=== PATIENT | male | born 1980 | race Caucasian/White ===

== ENCOUNTER 2020-04-17 23:22 | Emergency (ER) | payer BC, SELFPAY ==
[2020-04-17 23:22] VITALS: BP 132/92; PULSE 91; RESP 20; TEMP 37.1; O2SAT 98
--- NOTE | 2020-04-17 23:49 | ED.GENADULT ---
HPI - General Adult General Chief complaint: Skin/Abscess/Foreign Body Stated complaint: BUG BITE Source: patient Mode of arrival: ambulatory Limitations: no limitations History of Present Illness HPI narrative: Long is a 40M with a PMH of a staph infection that presented to the ED with 3 days of a worsengin rash. He had a small spot on his upper abdomen that started a few days ago and has had worsening circumferential erythema, induration and tenderness since. No fevers, chills, N/V or other rashes. Related Data Allergies Allergy/AdvReac Type Severity Reaction Status Date / Time No Known Allergies Allergy Mild Verified 06/27/10 07:57 dextromethorphan Allergy Unknown Verified 02/10/10 12:25 Review of Systems Constitutional: Constitutional: Reports no additional constitutional complaints Eyes: Eyes: Reports no additional eye complaints ENT: Reports system reviewed and no additional complaints, except as documented Cardiovascular: Cardiovascular: Reports no additional cardiovascular complaints Respiratory: Respiratory: Reports no additional respiratory complaints Gastrointestinal: Gastrointestinal: Reports no additional gastrointestinal complaints Genitourinary: Genitourinary: Reports no additional male genitourinary complaints Musculoskeletal: Musculoskeletal: Reports no additional musculoskeletal complaints Integumentary/Breasts: Skin/Breast: Reports as per HPI Neurologic: Reports system reviewed and no additional complaints, except as documented Psychiatric: Psychiatric: Reports no additional psychiatric complaints Endocrine: Endocrine: Reports no additional endocrine complaints Hematologic/Lymphatic: Hematologic/Lymphatic: Reports no additional hematologic/lymphatic complaints Allergic/Immunologic: Allergic/Immunologic: Reports no additional allergic/immunologic complaints [facility] Family History Family History Mother Family history of thyroid disease Social History Social History Smoking status: Never smoker Alcohol intake: current Exam Const: General: no acute distress and alert Orientation/consciousness: patient oriented x3 Limitations: No altered mental status HENMT: Head: normal to inspection Eyes: Conjunctivae: conjunctivae normal Pupils: Equal, round and reactive pupils present Neck: Neck: normal visual inspection Chest: Chest palpation & inspection: normal inspection of the chest Resp: Effort & Inspection: normal respiratory effort Cardio: Rate: regular rate GI: GI Palp: Yes Soft to palpation, No Tenderness to palpation present (GI) and No Guarding due to palpation present (GI) Skin: General skin exam: normal color Other: He had an area of dark beefy red induration 3-4cm in diameter with further e tailer colored erythema around that and underlying induration. Point of care ultrasonography exam showed cobblestoning but no induration. Neuro: General: patient oriented x3 and moves all extremities Extrem: General: normal to inspection Psych: Appearance: grossly normal Mental Status: mental status grossly normal Course Course Emergency Course: Long was given a dose of oral antibiotics in the ER and a script was sent for 7 days of clindamycin. Discharge Plan Discharge Clinical Impression: Cellulitis Patient Disposition: Home, Self-Care Condition: Stable Instructions: Antibiotic Form, Cellulitis (ED) Additional Instructions: Please return for any new, concerning, or worsening symptoms. Prescriptions: New clindamycin HCl 300 mg capsule 300 mg PO Q6H 7 Days Qty: 28 RF: 0 Follow-up/Referrals: UNKNOWN,DOCTOR [Primary Care Provider] -
[2020-04-17] MEDS: CLINDAMYCIN HCL 150 MG CAP 450 MG PO (23:56)
== END 2020-04-18 00:01 | disposition home or self-care (01) ==
PROVIDERS: Emergency Provider Family Medicine
DX: L03.311 Cellulitis of abdominal wall (principal)
CPT/HCPCS: 99283; A9270

== ENCOUNTER 2022-03-29 23:34 | Emergency (ER) | payer OTHER, SELFPAY ==
[2022-03-29 23:34] VITALS: BP 120/77; PULSE 85; RESP 16; TEMP 36.3; O2SAT 97
--- NOTE | 2022-03-29 23:40 | ED.GIBLEED ---
HPI - GI Bleed General Chief complaint: GI Bleed Stated complaint: rectal bleeding Source: patient and family ( ) Mode of arrival: ambulatory Limitations: no limitations History of Present Illness HPI Narrative: patient is a 41-year-old white male stated he had hemorrhoid surgery 1 week ago in [facility]. Since that time he has had rectal bleeding which has gotten worse tonight leading to have a near syncopal episode. he said he has clot of blood about 1 cup full tonight. . He feels lightheaded dizzy. patient stated he did not have any bowel movement after the surgery for 4 days. During that time he had mild discomfort and a little bit of rectal bleeding. AFTER HE TOOK A COLACE TWICE A DAY AND MIRALAX LIQUID ON THE 4TH DAY IN A BOWEL MOVEMENT WITH BLOOD AND SINCE THEN HE HAS HAD BLOODY STOOLS. TODAY AT 7 BLOODY STOOLS WITH CLOTS. HE SAYS HE HAS WORSE PAIN JUST BEFORE HE GETS ON THE TOILET IN ATTEMPTING TO HOLD BACK HIS BOWEL MOVEMENT. HE RATES THIS IS 4 TO 5/10 CHEST BEFORE HE HAS A BOWEL MOVEMENT IN ATTEMPT TO KEEP THE STOOL FROM LEAKING OUT. OTHERWISE HIS PAIN IS MILD. HE HAS USED 1 OXYCONTIN TODAY AND HAS BEEN TRYING TO AVOID THESE HE KNOWS A CONSTIPATED. Related Data Home Medications Medication Instructions Recorded Confirmed oxycodone 5 mg tablet 5 mg PO Q8H PRN Pain 03/30/22 03/30/22 Allergies Allergy/AdvReac Type Severity Reaction Status Date / Time No Known Allergies Allergy Mild Unverified 03/30/22 00:33 dextromethorphan Allergy Unknown Unknown Verified 03/30/22 00:33 Review of Systems Constitutional: Constitutional: Reports no additional constitutional complaints Eyes: Eyes: Reports no additional eye complaints ENT: Reports system reviewed and no additional complaints, except as documented, Reports dizziness and Denies epistaxis Cardiovascular: Cardiovascular: Reports no additional cardiovascular complaints Respiratory: Respiratory: Reports no additional respiratory complaints Gastrointestinal: Gastrointestinal: Reports no additional gastrointestinal complaints Genitourinary: Genitourinary: Reports no additional male genitourinary complaints Musculoskeletal: Musculoskeletal: Reports no additional musculoskeletal complaints Integumentary/Breasts: Skin/Breast: Reports system reviewed and no additional complaints, except as docu Neurologic: Reports system reviewed and no additional complaints, except as documented and Reports dizziness Psychiatric: Psychiatric: Reports no additional psychiatric complaints Endocrine: Endocrine: Reports no additional endocrine complaints Hematologic/Lymphatic: Hematologic/Lymphatic: Reports no additional hematologic/lymphatic complaints, Denies easy bleeding and Denies easy bruising PMFSH Surgical History Surgical History H/O hemorrhoidectomy Family History Family History Mother Family history of thyroid disease Social History Social History Smoking status: Never smoker Alcohol intake: current Exam Const: Limitations: no limitations Other: PATIENT IS A WHITE MALE APPEARS PALE MILD DISTRESS. EYES CONJUNCTIVA PALE, SCLERA NONICTERIC OROPHARYNX IS CLEAR WITH MOIST MUCOUS MEMBRANES LIPS ARE PALE DRY NECK IS SUPPLE LUNGS ARE CLEAR HEART IS REGULAR RATE AND RHYTHM WITHOUT MURMURS GALLOPS OR RUBS. VITAL SIGNS ARE NORMAL IN THE SUPINE POSITION. ABDOMEN SOFT AND NONTENDER . RECTUM RECTAL FISSURE IS PRESENT WITH EXTERNAL HEMORRHOIDS. INTERNAL EXAM WAS NOT DONE. EXTREMITY IS NO CYANOSIS CLUBBING OR EDEMA. 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 DISCUSS WITH DR. BRADEN SANZ COLORECTAL SURGEON WHO DID HIS SURGERY; STATE HE DID A OPEN HEMORRHOIDECTOMY AND A RECTAL FISSURE THAT I AM SEEING IS MOST LIKELY HIS OPE
--- NOTE | 2022-03-29 23:45 | PC.NURSE ---
RN takes pt's orthostatic blood pressures upon arrival per ERP request. Pt's supine bp is 120/77. Sitting is 113/71. Pt was unable to tolerate standing the entire time bp is going due to dizziness and felt like he was going to pass out so RN lays pt back down during reading. The reading is 101/70
[2022-03-29 23:56] LABS: Hematocrit 29.2 % (40.0-54.0); Hemoglobin 10.4 g/dL (14.0-18.0); Mean Corpuscular HGB Conc 35.6 g/dL (32.0-36.0); Mean Corpuscular Hemoglobin 32.5 pg (27.0-31.0); Mean Corpuscular Volume 91.3 fL (78.0-102.0); Mean Platelet Volume 8.8 fl (8.7-11.0); Platelet Count Result 253 K/mm3 (150-420); Red Cell Distribution Width 11.9 % (11.6-14.4); White Blood Count 7.6 K/mm3 (4.8-10.8)
[2022-03-30] VITALS (11 sets, daily range): BP systolic 101–119; BP diastolic 65–79; PULSE 69–103; RESP 16–18; TEMP 36.4; O2SAT 98–100
[2022-03-30] MEDS: SODIUM CHLORIDE 0.9% IV 1,000 ML 999 ML IV CONT ×2 (00:04→02:04)
[2022-03-30 00:12] LABS: Alanine Aminotransferase 20 U/L (16-63); Albumin Level 2.9 g/dL (3.4-5.0); Alkaline Phosphatase 65 U/L (46-116); Anion Gap 6 mmol/L (8-16); Aspartate Amino Transferase 15 U/L (15-37); Bilirubin,Total 0.3 mg/dL (0.00-1.00); Blood Urea Nitrogen 14 mg/dL (7-18); Calcium 8.1 mg/dL (8.5-10.1); Carbon Dioxide 29 mmol/L (21-32); Chloride 105 mmol/L (98-108); Estimated Glomerular Filt Rate > 60; Glucose 105 mg/dL (70-99); Osmolality Calculated 290 mOsm/kg (285-295); Potassium 3.6 mmol/L (3.5-5.1); Sodium 140 mmol/L (136-145); Total Protein 5.4 g/dL (6.4-8.2)
--- NOTE | 2022-03-30 00:17 | PC.NURSE ---
Pt alerts RN that he has had a BM in the bedside commode. Upon visualization, the stool is a moderate amount of dark red blood with clots. ERP notified.
--- NOTE | 2022-03-30 00:40 | PC.NURSE ---
Pt states that he was able to find the provider's name who preformed the surgery and it is Hesham Zamora at [facility].
[2022-03-30 02:07] LABS: Hemoglobin 9.3 g/dL (14.0-18.0); Mean Corpuscular HGB Conc 35.8 g/dL (32.0-36.0); Mean Corpuscular Hemoglobin 32.4 pg (27.0-31.0); Mean Corpuscular Volume 90.6 fL (78.0-102.0); Platelet Count Result 218 K/mm3 (150-420); Red Blood Count 2.87 M/mm3 (4.70-6.10); Red Cell Distribution Width 11.9 % (11.6-14.4); White Blood Count 7.4 K/mm3 (4.8-10.8)
--- NOTE | 2022-03-30 02:09 | PC.NURSE ---
Pt states that he had another blood BM in the bedside commode. Upon visualization there is a small amount of dark red blood with a few clots in the longo.
--- NOTE | 2022-03-30 03:03 | PC.NURSE ---
RN went to perform orthostatics and pt states that he had another BM. This time BM is an even smaller amount of dark red blood with clots. Pt able to perform orthostatics without incident.
== END 2022-03-30 03:23 | disposition home or self-care (01) ==
PROVIDERS: Emergency Provider Emergency Medicine
DX: K62.5 Hemorrhage of anus and rectum (principal); Z98.890 Other specified postprocedural states; D64.9 Anemia, unspecified
CPT/HCPCS: 36415; 80053; 85027; 96360; 96361; 99283; J7030

== ENCOUNTER 2024-01-25 08:53 | Emergency (ER) | payer OTHER, SELFPAY ==
--- NOTE | ~2024-01-25 | CT_ITS ---
CT abdomen pelvis wo con Ordering provider: Jovan Rivera MD History: 43 years Male with . Rectal bleeding w/ constipation x6 weeks . Comparison: None. Technique: CT abdomen and pelvis with IV and without oral contrast. Automated exposure control and it erative reconstruction technique were employed. The dose-length product was 482.98 mGy-cm. Findings: VISUALIZED LOWER CHEST: Dependent atelectasis in the right lung base. UPPER ABDOMINAL ORGANS: Liver: Normal. Gallbladder: Normal. Spleen: Normal. Stomach/duodenum: Normal. Pancreas: Normal. Adrenals: Normal. Kidneys: Normal. PELVIC ORGANS: The bladder is normal. BOWEL AND MESENTERY: Colon: Mild sigmoid diverticulosis without diverticulitis. Soft tissue density seen in the rectum whi ch may be fecal material. Clinical evaluation advised. Fecal Material is loaded in the colon suggesti ve of constipation. Normal appendix. Small Bowel: Normal. No obstruction. Peritoneum/mesentery: No free air or free fluid. No mesenteric lymphadenopathy. Lymph nodes are seen in around the rectum with the largest measures 1.2 cm. Left pelvic lymph nodes are also noted with the largest measures 1.3 cm.Follow-up advised. RETROPERITONEUM: Normal aorta. No retroperitoneal lymphadenopathy. MUSCULOSKELETAL: Superficial soft tissues: The superficial soft tissues are normal. Bones: Age appropriate degenerative changes of the spine. IMPRESSION: 1. No evidence of appendicitis, diverticulitis or intestinal obstruction. No renal stones. 2. Soft tissue density in the rectum which may be a fecal material. Clinical evaluation advised. 3. Slightly enlarged perirectal and pelvic lymph nodes. Follow-up advised. 4. Constipation. Reviewed, dictated and finalized at location A. IMPRESSION: 1. No evidence of appendicitis, diverticulitis or intestinal obstruction. No r enal stones. 2. Soft tissue density in the rectum which may be a fecal material. Clinical e valuation advised. 3. Slightly enlarged perirectal and pelvic lymph nodes. Follow-up advised. 4. Constipation.
[2024-01-25 08:54] VITALS: BP 145/109; PULSE 84; RESP 18; TEMP 36.2; O2SAT 99
--- NOTE | 2024-01-25 09:39 | ED.GIBLEED ---
HPI - GI Bleed General Chief complaint: GI Bleed Stated complaint: blood in stool Time Seen by Provider: 01/25/24 09:03 Source: patient and family Mode of arrival: ambulatory Limitations: no limitations History of Present Illness HPI Narrative: patient is a 43-year-old male with some bright red blood per rectum into the toilet bowl and toilet paper. This has been going on for 6 weeks. He has had in the past hemorrhoids with surgery. He has had anemia in the past. He has a little bit of pain on the left lower quadrant. He has been having diarrhea also on and off for the past 6 weeks. No nausea vomiting. MD complaint: gross hematemesis and blood on toilet paper Onset (ago): week(s) (6) Pain Consistency: constant Severity: moderate Relieving factors: none Exacerbating factors: none Context: history of GI bleed and hemorrhoids Associated symptoms: abdominal pain ( Left lower quadrant) Treatments Prior to Arrival: none Related Data Home Medications Medication Instructions Recorded Confirmed oxycodone 5 mg tablet 5 mg PO Q8H PRN Pain 03/30/22 03/30/22 Allergies Allergy/AdvReac Type Severity Reaction Status Date / Time No Known Allergies Allergy Mild Unverified 03/30/22 00:33 dextromethorphan Allergy Unknown Unknown Verified 03/30/22 00:33 Review of Systems Review of Systems: All systems reviewed & are unremarkable except as noted in HPI and below Constitutional: Constitutional: Reports no additional constitutional complaints Eyes: Eyes: Reports no additional eye complaints ENT: Reports system reviewed and no additional complaints, except as documented Cardiovascular: Cardiovascular: Reports no additional cardiovascular complaints Respiratory: Respiratory: Reports no additional respiratory complaints Gastrointestinal: Gastrointestinal: Reports no additional gastrointestinal complaints Genitourinary: Genitourinary: Reports no additional male genitourinary complaints Musculoskeletal: Musculoskeletal: Reports no additional musculoskeletal complaints Integumentary/Breasts: Skin/Breast: Reports system reviewed and no additional complaints, except as docu Neurologic: Reports system reviewed and no additional complaints, except as documented Psychiatric: Psychiatric: Reports no additional psychiatric complaints Endocrine: Endocrine: Reports no additional endocrine complaints Hematologic/Lymphatic: Hematologic/Lymphatic: Reports no additional hematologic/lymphatic complaints Allergic/Immunologic: Allergic/Immunologic: Reports no additional allergic/immunologic complaints PMFSH Surgical History Surgical History H/O hemorrhoidectomy Family History Family History Mother Family history of thyroid disease Social History Social History Smoking status: Never smoker Alcohol intake: current Exam Const: General: healthy appearing Nutritional Appearance: well nourished Orientation/consciousness: patient oriented x3 HENMT: Head: normal to inspection Ears: external ears normal Face/Nose/Sinus: Normal external nose present Eyes: Conjunctivae: conjunctivae normal Pupils: Equal, round and reactive pupils present EOM: EOMs intact bilaterally Neck: Neck: normal visual inspection Chest: Chest palpation & inspection: normal inspection of the chest Resp: Effort & Inspection: normal respiratory effort and not labored Auscultation: clear to auscultation bilaterally Cardio: Rate: regular rate Rhythm: regular rhythm Heart sounds: no murmurs GI: Inspection: non-distended GI Palp: Yes Soft to palpation, No Tenderness to palpation present (GI), No Guarding due to palpation present (GI) and No Rigid due to palpation Auscultation: Hyperactive bowel sounds present Rectal Exam: normal sphincter tone Other: Normal rectal exam; normal recta
[2024-01-25 09:42] LABS: Basophils Absolute Auto 0.04 K/mm3 (0.00-0.10); Basophils Percent Auto 0.5 % (0.0-1.0); Eosinophils Percent Auto 3.7 % (1.0-6.0); Hematocrit 45.3 % (40.0-54.0); Immature Granulocyte Absolute 0.03 K/mm3 (0.00-0.00); Immature Granulocyte Percent A 0.4 % (0.0-0.0); Lymphocytes Absolute Auto 1.49 K/mm3 (1.10-4.50); Lymphocytes Percent Auto 18.6 % (18.0-42.0); Mean Corpuscular HGB Conc 35.3 g/dL (32-36); Mean Corpuscular Hemoglobin 31.8 pg (27.0-31.0); Mean Corpuscular Volume 90.1 fL (78.0-102.0); Mean Platelet Volume 8.4 fl (8.7-11.0); Monocytes Percent Auto 8.7 % (2.0-11.0); Neutrophils Absolute Auto 5.47 K/mm3 (1.70-7.20); Neutrophils Percent Auto 68.1 % (50.0-70.0); Platelet Count Result 246 K/mm3 (150-420); Red Blood Count 5.03 M/mm3 (4.70-6.10); Red Cell Distribution Width 12.7 % (11.6-14.4)
[2024-01-25 09:59] LABS: Alanine Aminotransferase 26 U/L (16-63); Albumin Level 3.6 g/dL (3.4-5.0); Alkaline Phosphatase 91 U/L (46-116); Anion Gap 7 mmol/L (4-12); Aspartate Amino Transferase 20 U/L (15-37); Bilirubin,Total 0.4 mg/dL (0.00-1.00); Blood Urea Nitrogen 15 mg/dL (7-18); Calcium 8.5 mg/dL (8.5-10.1); Carbon Dioxide 29 mmol/L (21-32); Chloride 104 mmol/L (98-108); Estimated CRCL calculation 70 ml/min; Estimated Glomerular Filt Rate > 60; Glucose 92 mg/dL (70-99); Lipase 63 U/L (16-77); Osmolality Calculated 290 mOsm/kg (285-295); Potassium 3.8 mmol/L (3.5-5.1); Sodium 140 mmol/L (136-145); Total Protein 6.8 g/dL (6.4-8.2)
[2024-01-25 10:02] LABS: INR 0.9; Partial Thromboplastin Time 29.1 Sec (23.9-30.70)
[2024-01-25 10:03] VITALS: BP 126/88; PULSE 74; RESP 16; O2SAT 95
[2024-01-25 10:07] LABS: Occult Blood Negative (Negative)
--- NOTE | 2024-01-25 10:33 | PC.NURSE ---
pt declined to provide stool sample at this time
[2024-01-25 10:35] VITALS: BP 138/95; PULSE 76; RESP 20; TEMP 36.6; O2SAT 95
[2024-01-25 11:55] LABS: Toxigenic C. Diff NEGATIVE (NEGATIVE)
[2024-01-25 12:10] VITALS: BP 131/98; PULSE 77; RESP 18; TEMP 37.1; O2SAT 97
--- NOTE | 2024-01-28 15:07 | PC.NURSE ---
STOOL SAMPLE FINAL RESULTS NO SALMONELLA OR SHIGELLA ISOLATED CAMPYLOBACTER NOT DETECTED
--- NOTE | 2024-01-29 13:10 | PC.NURSE ---
FINAL SHIGA TOXINS RFLX ECOLI 0157 RESUTLS: NOT DETECTED FINAL SALMONELLA/SHIGELLA CULTURE RESULTS: NO SALMONELLA OR SHIGELLA ISOLATED FINAL CAMPYLOBACTER EIA RESULTS: NOT DETECTED.
== END 2024-01-25 12:10 | disposition home or self-care (01) ==
PROVIDERS: Emergency Provider Emergency Medicine
DX: K92.2 Gastrointestinal hemorrhage, unspecified (principal)
CPT/HCPCS: 36415; 74176; 80053; 82272; 83690; 85025; 85610; 85730; 87045; 87177; 87209; 87427; 87449; 87493; 99284